=== PATIENT | male | born 1975 | race African-American/Black ===

== ENCOUNTER 2022-10-04 09:13 | Emergency (ER) | payer OTHER ==
[~2022-10-04] VITALS: Ht 177.8 cm; Wt 86.4 kg
[2022-10-04] MEDS ORDERED: cefTRIAXone 500MG VIAL IM ONE (12:15)
[2022-10-04] MEDS ORDERED: LIDOCAINE 1% SDV 5ML VIAL DILUENT ONE (12:15)
[2022-10-04 12:21] VITALS: BP 129/68
[2022-10-04 12:43] LABS: GC DNA AMPLIFICATION NEGATIVE (NEGATIVE)
[2022-10-05] MEDS ORDERED: LEVO1TAB39 PO (09:11)
== END 2022-10-04 12:35 | disposition home or self-care (01) ==
LOC: M ED 09:13
DX: N45.1 Epididymitis (principal); J30.89 Other allergic rhinitis